=== PATIENT | male | born 1990 | race Caucasian/White ===

== ENCOUNTER 2018-05-06 19:20 | Emergency (ER) | payer OTHER ==
[~2018-05-06] VITALS: Ht 180.3 cm; Wt 81.6 kg
[2018-05-06] VITALS (8 sets, daily range): BP systolic 104–150; BP diastolic 63–89
[2018-05-06] MEDS ORDERED: Haloperidol 5mg/ml Inj ONE (19:23)
[2018-05-06] MEDS ORDERED: LORazepam Inj 2mg/ml 1ml ONE (19:23)
[2018-05-06] MEDS ORDERED: Haloperidol 5mg/ml Inj IM ONE (19:30)
[2018-05-06] MEDS ORDERED: LORazepam Inj 2mg/ml 1ml IM ONE (19:30)
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
[2018-05-07 00:10] VITALS: BP 106/63
[2018-05-07] MEDS ORDERED: Ammonia Inhalant 0.33mL 1 Amp INH ONE ×2 (00:42→00:45)
[2018-05-07 00:50] VITALS: BP 106/63
--- NOTE | 2018-05-07 09:52 | Diagnostic Imaging Report ---
Indication: Altered level of consciousness Technique: Contiguous 5 mm thick transaxial imaging of the head obtained in a Siem[employer] Sensation [address] scanner. Soft tissue and bone windows generated. Automatic Exposure Control was utilized. Total Dose length Product (DLP): 1471.[address] Dose Index Volume (CTDIvol): 70.38 mGy Comparison: none Findings: The size and configuration of the cortical sulci, basal cisterns, and ventricles are within normal limits for age. There is no mass effect, midline shift, or edema identified. There is no evidence of acute hemorrhage or abnormal intra-axial or extra-axial fluid collections. The bones and soft tissues are unremarkable. Impression: No mass effect, edema or acute bleed. There is extensive artifact limiting evaluation The CT scanner at [facility] is accredited by the [employer] and the scans are performed using dose optimization techniques as appropriate to a performed exam including Automatic Exposure control.
== END 2018-05-07 00:50 ==
LOC: EDBD 19:20 → EMR 19:49
DX: R41.82 Altered mental status, unspecified (principal); F91.8 Other conduct disorders; R45.1 Restlessness and agitation; F15.10 Other stimulant abuse, uncomplicated
CPT/HCPCS: 70450; 80307; 96372; 99284; J1630